=== PATIENT | female | born 1995 | race Caucasian/White ===

== ENCOUNTER 2018-08-18 17:16 | Outpatient (CLI) | payer MEDICAID ==
[2018-08-18 18:14] LABS: BASOPHIL # 0.1 10^3/ul (0.0-0.1); BASOPHILS % 0.5 % (0.0-2.0); EOSINOPHILS # 0.6 10^3/ul (0.0-0.5); EOSINOPHILS % 6.1 % (0.0-7.0); HEMATOCRIT 37.4 % (37.0-47.0); HEMOGLOBIN 11.9 g/dl (12.0-16.0); LYMPHOCYTES % 20.1 % (15.0-51.0); MEAN CORPUSCULAR HEMOGLOBIN 28.2 pg (29.0-33.0); MEAN CORPUSCULAR HGB CONC 31.8 g/dl (32.0-37.0); MEAN CORPUSCULAR VOLUME 88.6 fl (82.0-101.0); MEAN PLATELET VOLUME 10.1 fl (7.4-10.4); MONOCYTE # 0.6 10^3/ul (0.3-0.9); MONOCYTES % 5.5 % (0.0-11.0); NEUTROPHIL # 6.8 10^3/ul (1.6-7.5); NEUTROPHILS % 66.8 % (39.0-77.0); PLATELET COUNT 314 10^3/UL (140-415); RED BLOOD COUNT 4.22 10^6/ul (4.20-5.40); RED CELL DISTRIBUTION WIDTH 14.6 % (11.5-14.5)
[2018-08-18 18:14] LABS: WHITE BLOOD COUNT 10.1 10^3/ul (4.8-10.8)
[2018-08-18 18:15] LABS: ADD MAN DIFF? NO
[2018-08-18 18:17] LABS: ADD UMIC NO; UR ASCORBIC ACID NEGATIVE (NEGATIVE); UR BILIRUBIN (Dip) NEGATIVE (NEGATIVE); UR BLOOD (Dip) NEGATIVE (NEGATIVE); UR CLARITY CLEAR (CLEAR); UR COLOR YELLOW (YELLOW); UR GLUCOSE (Dip) NEGATIVE (NEGATIVE); UR KETONES (Dip) NEGATIVE (NEGATIVE); UR LEUKOCYTE ESTERASE (Dip) NEGATIVE Leu/ul (NEGATIVE); UR NITRITE (Dip) NEGATIVE (NEGATIVE); UR SPECIFIC GRAVITY (Dip) 1.006 (1.003-1.030); UR TOTAL PROTEIN (Dip) NEGATIVE (NEGATIVE); UR UROBILINOGEN (Dip) NEGATIVE (NEGATIVE)
[2018-08-18 18:34] LABS: ALANINE AMINOTRANSFERASE 20 IU/L (13-69); ALBUMIN 3.3 g/dl (3.3-4.9); ALKALINE PHOSPHATASE 204 IU/L (42-121); ANION GAP 8 (5-13); ASPARTATE AMINO TRANSFERASE 19 IU/L (15-46); BILIRUBIN,INDIRECT 0.4 mg/dl (0-1.1); BILIRUBIN,TOTAL 0.4 mg/dl (0.2-1.3); BLOOD UREA NITROGEN 6 mg/dl (7-20); CALCIUM 9.3 mg/dl (8.4-10.2); CARBON DIOXIDE 21 mmol/L (21-31); CHLORIDE 109 mmol/L (97-110); Estimated GFR > 60 mL/min (>60); GLUCOSE 140 mg/dl (70-220); POTASSIUM 4.1 mmol/L (3.5-5.1); SODIUM 138 mmol/L (135-144); TOTAL PROTEIN 6.6 g/dl (6.1-8.1); URIC ACID 3.5 mg/dl (3.1-7.9)
== END 2018-08-18 20:10 | disposition home or self-care (01) ==
LOC: OBT 17:16 → L-D 17:16 → OBT 20:10
DX: O13.3 Gestational [pregnancy-induced] hypertension without significant proteinuria, third trimester (principal); Z3A.34 34 weeks gestation of pregnancy
CPT/HCPCS: 76815; 76818; 80053; 81003; 84560; 85025

== ENCOUNTER 2018-08-20 08:36 | Outpatient (CLI) | payer MEDICAID ==
[2018-08-20 10:14] LABS: COLLECTION PERIOD 24 hrs
[2018-08-20 10:28] LABS: ADD MAN DIFF? NO
[2018-08-20 10:33] LABS: WHITE BLOOD COUNT 10.8 10^3/ul (4.8-10.8)
[2018-08-20 10:33] LABS: BASOPHIL # 0.1 10^3/ul (0.0-0.1); BASOPHILS % 0.6 % (0.0-2.0); EOSINOPHILS # 0.8 10^3/ul (0.0-0.5); EOSINOPHILS % 7.1 % (0.0-7.0); HEMATOCRIT 36.6 % (37.0-47.0); HEMOGLOBIN 11.8 g/dl (12.0-16.0); LYMPHOCYTES # 1.9 10^3/ul (0.8-2.9); LYMPHOCYTES % 17.4 % (15.0-51.0); MEAN CORPUSCULAR HEMOGLOBIN 28.2 pg (29.0-33.0); MEAN CORPUSCULAR HGB CONC 32.2 g/dl (32.0-37.0); MEAN CORPUSCULAR VOLUME 87.4 fl (82.0-101.0); MEAN PLATELET VOLUME 10.3 fl (7.4-10.4); MONOCYTE # 0.7 10^3/ul (0.3-0.9); MONOCYTES % 6.5 % (0.0-11.0); NEUTROPHIL # 7.3 10^3/ul (1.6-7.5); NEUTROPHILS % 67.3 % (39.0-77.0); PLATELET COUNT 283 10^3/UL (140-415); RED BLOOD COUNT 4.19 10^6/ul (4.20-5.40); RED CELL DISTRIBUTION WIDTH 14.6 % (11.5-14.5)
[2018-08-20 10:50] LABS: ALANINE AMINOTRANSFERASE 18 IU/L (13-69); ALBUMIN 3.4 g/dl (3.3-4.9); ALBUMIN/GLOBULIN RATIO 1.09; ALKALINE PHOSPHATASE 189 IU/L (42-121); ANION GAP 10 (5-13); ASPARTATE AMINO TRANSFERASE 19 IU/L (15-46); BILIRUBIN,INDIRECT 0.5 mg/dl (0-1.1); BILIRUBIN,TOTAL 0.5 mg/dl (0.2-1.3); BLOOD UREA NITROGEN 7 mg/dl (7-20); CALCIUM 9.9 mg/dl (8.4-10.2); CARBON DIOXIDE 21 mmol/L (21-31); CHLORIDE 109 mmol/L (97-110); CREATININE 0.45 mg/dl (0.44-1.00); Estimated GFR > 60 mL/min (>60); GLUCOSE 83 mg/dl (70-220); POTASSIUM 4.1 mmol/L (3.5-5.1); SODIUM 140 mmol/L (135-144); TOTAL PROTEIN 6.5 g/dl (6.1-8.1); URIC ACID 3.6 mg/dl (3.1-7.9)
[2018-08-20 10:53] LABS: COLLECTION PERIOD 24 hrs; CREATININE CLEARANCE 152.6 mls/min (84.0-162.0); CREATININE,URINE RANDOM 28.26 mg/dl (20-320); SCRET 0.45 mg/dl (0.44-1.00); VOLUME 3500 ml/24hrs
[2018-08-20 10:54] LABS: VOLUME 3500 mls
[2018-08-20 10:55] LABS: INR 0.89; PROTIME 12.1 Sec (11.9-14.9); PT RATIO 0.9
[2018-08-20 10:56] LABS: PARTIAL THROMBOPLASTIN TIME 26.3 Sec (23.0-35.0)
[2018-08-20 11:07] LABS: ADD UMIC YES; UR ASCORBIC ACID NEGATIVE (NEGATIVE); UR BACTERIA FEW /HPF (NONE SEEN); UR BILIRUBIN (Dip) NEGATIVE (NEGATIVE); UR BLOOD (Dip) NEGATIVE (NEGATIVE); UR CLARITY CLEAR (CLEAR); UR COLOR YELLOW (YELLOW); UR GLUCOSE (Dip) NEGATIVE (NEGATIVE); UR KETONES (Dip) NEGATIVE (NEGATIVE); UR LEUKOCYTE ESTERASE (Dip) TRACE Leu/ul (NEGATIVE); UR NITRITE (Dip) NEGATIVE (NEGATIVE); UR RBC 0 /HPF (0-5); UR SPECIFIC GRAVITY (Dip) 1.009 (1.003-1.030); UR SQUAMOUS EPITHELIAL CELL FEW /HPF (FEW); UR TOTAL PROTEIN (Dip) NEGATIVE (NEGATIVE); UR UROBILINOGEN (Dip) NEGATIVE (NEGATIVE); UR WBC 0 /HPF (0-5)
== END 2018-08-20 12:00 | disposition home or self-care (01) ==
LOC: OBT 08:36 → L-D 08:36 → OBT 12:00
DX: O13.3 Gestational [pregnancy-induced] hypertension without significant proteinuria, third trimester (principal); Z3A.34 34 weeks gestation of pregnancy
CPT/HCPCS: 76818; 80053; 81001; 82575; 84156; 84560; 85025; 85384; 85610; 85730

== ENCOUNTER 2018-09-11 03:32 | Inpatient (IN) | payer MEDICAID ==
[2018-09-11] MEDS ORDERED: MISOPROSTOL 200 MCG TAB PR (04:30)
[2018-09-11] MEDS ORDERED: MINERAL OIL LIGHT 10 ML VIAL TOP (04:30)
[2018-09-11] MEDS ORDERED: METHYLERGONOVINE 0.2 MG INJ IM (04:30)
[2018-09-11] MEDS ORDERED: BUTORPHANOL 2 MG INJ IV (04:30)
[2018-09-11] MEDS ORDERED: CARBOPROST 250 MCG INJ IM (04:30)
[2018-09-11] MEDS ORDERED: LIDOCAINE 1% (MPF) 30 ML INJ INJ (04:30)
[2018-09-11] MEDS ORDERED: IBUPROFEN 600 MG TAB PO (04:30)
[2018-09-11] MEDS ORDERED: OXYTOCIN 30 UNITS/LR 500 ML IV ×3 (04:30)
[2018-09-11 04:54] LABS: ADD MAN DIFF? NO
[2018-09-11 04:59] LABS: BASOPHILS % 0.4 % (0.0-2.0); EOSINOPHILS # 0.2 10^3/ul (0.0-0.5); EOSINOPHILS % 2.2 % (0.0-7.0); HEMATOCRIT 41.2 % (37.0-47.0); LYMPHOCYTES # 2.4 10^3/ul (0.8-2.9); LYMPHOCYTES % 24.9 % (15.0-51.0); MEAN CORPUSCULAR HEMOGLOBIN 28.6 pg (29.0-33.0); MEAN CORPUSCULAR HGB CONC 31.6 g/dl (32.0-37.0); MEAN CORPUSCULAR VOLUME 90.7 fl (82.0-101.0); MONOCYTE # 0.7 10^3/ul (0.3-0.9); NEUTROPHIL # 6.2 10^3/ul (1.6-7.5); NEUTROPHILS % 64.7 % (39.0-77.0); PLATELET COUNT 254 10^3/UL (140-415); RED BLOOD COUNT 4.54 10^6/ul (4.20-5.40); RED CELL DISTRIBUTION WIDTH 14.6 % (11.5-14.5)
[2018-09-11 04:59] LABS: WHITE BLOOD COUNT 9.7 10^3/ul (4.8-10.8)
[2018-09-11] MEDS: LACTATED RINGER'S 1,000 ML IV ×3 (05:10→16:21)
[2018-09-11] MEDS: AMPICILLIN 2 GM/NS (PMX) 100 ML IV (05:10)
[2018-09-11] MEDS: OXYTOCIN 30 UNITS/LR 500 ML IV (05:15)
[2018-09-11 05:18] LABS: INR 0.87; PARTIAL THROMBOPLASTIN TIME 27.2 Sec (23.0-35.0); PROTIME 11.9 Sec (11.9-14.9); PT RATIO 0.9
[2018-09-11 05:28] LABS: ALANINE AMINOTRANSFERASE 49 IU/L (13-69); ALBUMIN 3.6 g/dl (3.3-4.9); ALKALINE PHOSPHATASE 272 IU/L (42-121); ASPARTATE AMINO TRANSFERASE 38 IU/L (15-46); BILIRUBIN,INDIRECT 0.5 mg/dl (0-1.1); BILIRUBIN,TOTAL 0.5 mg/dl (0.2-1.3); URIC ACID 5.1 mg/dl (3.1-7.9)
[2018-09-11] MEDS ORDERED: AMPICILLIN 1 GM/NS (PMX) 50 ML IV (09:00)
[2018-09-11] MEDS ORDERED: FENTAnyl 2MCG/ML-ROPIV 0.2% 100 ML (11:10)
[2018-09-11] MEDS ORDERED: NALOXONE (0.4 MG/ML) INJ IV (11:30)
[2018-09-11 15:09] LABS: RAPID PLASMA REAGIN NONREACTIVE (NR)
[2018-09-11] MEDS: FENTAnyl 2MCG/ML-ROPIV 0.2% 100 ML BAG EPI (19:26)
[2018-09-11] MEDS: AMPICILLIN 1 GM/NS (PMX) 50 ML IV (21:26)
[2018-09-12] MEDS: FENTAnyl 2MCG/ML-ROPIV 0.2% 100 ML BAG EPI ×3 (01:47→14:11)
[2018-09-12] MEDS: AMPICILLIN 1 GM/NS (PMX) 50 ML IV ×5 (01:48→19:47)
[2018-09-12] MEDS: LACTATED RINGER'S 1,000 ML IV ×5 (01:50→20:09)
[2018-09-12] MEDS ORDERED: CARBOPROST 250 MCG INJ IM ×2 (14:00→18:00)
[2018-09-12] MEDS: CEFAZOLIN 3 GM in DEXTROSE 5% 100 ML IV (14:00)
[2018-09-12] MEDS ORDERED: METHYLERGONOVINE 0.2 MG INJ IM ×2 (14:00→18:00)
[2018-09-12] MEDS ORDERED: MISOPROSTOL 200 MCG TAB PR ×2 (14:00→18:00)
[2018-09-12] MEDS ORDERED: OXYTOCIN 30 UNITS/LR 500 ML IV ×3 (14:00→18:00)
[2018-09-12] MEDS: CITRIC ACID/NA CITRATE 30 ML CUP PO (15:30)
[2018-09-12] MEDS: METOCLOPRAMIDE 10 MG INJ IV (15:30)
[2018-09-12] MEDS: FAMOTIDINE 20 MG INJ IV (15:30)
[2018-09-12 15:41] LABS: ADD MAN DIFF? NO
[2018-09-12 15:42] LABS: BASOPHILS % 0.2 % (0.0-2.0); EOSINOPHILS # 0.1 10^3/ul (0.0-0.5); EOSINOPHILS % 0.3 % (0.0-7.0); HEMOGLOBIN 11.9 g/dl (12.0-16.0); LYMPHOCYTES # 1.2 10^3/ul (0.8-2.9); LYMPHOCYTES % 7.4 % (15.0-51.0); MEAN CORPUSCULAR HEMOGLOBIN 28.5 pg (29.0-33.0); MEAN CORPUSCULAR HGB CONC 31.3 g/dl (32.0-37.0); MEAN CORPUSCULAR VOLUME 91.1 fl (82.0-101.0); MEAN PLATELET VOLUME 11.2 fl (7.4-10.4); MONOCYTE # 1.1 10^3/ul (0.3-0.9); MONOCYTES % 6.8 % (0.0-11.0); NEUTROPHIL # 13.6 10^3/ul (1.6-7.5); NEUTROPHILS % 84.7 % (39.0-77.0); PLATELET COUNT 213 10^3/UL (140-415); RED BLOOD COUNT 4.17 10^6/ul (4.20-5.40); RED CELL DISTRIBUTION WIDTH 14.7 % (11.5-14.5)
[2018-09-12 15:42] LABS: WHITE BLOOD COUNT 16.1 10^3/ul (4.8-10.8)
[2018-09-12 16:01] LABS: ALANINE AMINOTRANSFERASE 58 IU/L (13-69); ALBUMIN 3.1 g/dl (3.3-4.9); ALBUMIN/GLOBULIN RATIO 1.19; ALKALINE PHOSPHATASE 260 IU/L (42-121); ANION GAP 10 (5-13); ASPARTATE AMINO TRANSFERASE 43 IU/L (15-46); BILIRUBIN,INDIRECT 0.8 mg/dl (0-1.1); BILIRUBIN,TOTAL 0.8 mg/dl (0.2-1.3); BLOOD UREA NITROGEN 15 mg/dl (7-20); CALCIUM 9.1 mg/dl (8.4-10.2); CARBON DIOXIDE 18 mmol/L (21-31); CHLORIDE 108 mmol/L (97-110); Estimated GFR > 60 mL/min (>60); GLUCOSE 64 mg/dl (70-220); POTASSIUM 3.6 mmol/L (3.5-5.1); SODIUM 136 mmol/L (135-144); TOTAL PROTEIN 5.7 g/dl (6.1-8.1)
[2018-09-12] MEDS ORDERED: morphine SULFATE/PF (10 MG/10 ML) INJ (16:24)
[2018-09-12] MEDS ORDERED: PHENYLephrine (100 MCG/ML) 10ML SYG ×2 (16:30→17:39)
[2018-09-12 16:32] LABS: CREATININE,URINE RANDOM 104.06 mg/dl (20-320); PROTEIN/CREAT RATIO 0.41 RATIO
[2018-09-12] MEDS ORDERED: ONDANSETRON 4 MG INJ (16:55)
[2018-09-12] MEDS ORDERED: MEPERIDINE 25 MG INJ IV (17:00)
[2018-09-12] MEDS ORDERED: FENTAnyl 50 MCG/ML VIAL IV ×3 (17:00)
[2018-09-12] MEDS ORDERED: ONDANSETRON 4 MG INJ IV ×2 (17:00→18:30)
[2018-09-12] MEDS ORDERED: DIPHENHYDRAMINE 50 MG INJ IV ×2 (17:00→18:30)
[2018-09-12] MEDS ORDERED: HYDROmorphONE 1 MG/5 ML IV SYRINGE IV ×3 (17:00)
[2018-09-12] MEDS ORDERED: PROCHLORPERAZINE 10 MG INJ IV (17:00)
[2018-09-12 17:31] LABS: CBV Base Excess -5.6 mmol/L; CBV Oxygen Sat 48.7 mmHG; CBV Total Hemglobin 13.6 g/dl; Cord Blood Venous pO2 27.4 mmHG (15.0-45.0); Fraction OxyHgb Cord Venous 47.5 %; MODE ROOM AIR; MetHgb Cord Venous 1.5 %; Sample Type CBV; Site CORD
[2018-09-12 17:34] LABS: AADO2 Cord Arterial 80.2 mmHg; Arterial Cord Blood pCO2 34.5 mmHG (25-50); CBA COHb 1.6 %; CBA Oxygen Sat 59.2 mmHG; CBA Total Hemglobin 14.8 g/dl; Cord Blood Arterial pO2 28.2 mmHG (15.0-45.0); Fraction OxyHgb Cord Arterial 57.6 %; MODE ROOM AIR; MetHgb Cord Arterial 1.1 %; Sample Type CBA; Site CORD
[2018-09-12] MEDS ORDERED: NACL 0.9% 3 ML SYG IV (18:00)
[2018-09-12] MEDS ORDERED: NA PHOSPHATE/BIPHOS 133 ML ENEMA PR (18:00)
[2018-09-12] MEDS ORDERED: LANOLIN HPA 1 PKT TOP (18:00)
[2018-09-12] MEDS ORDERED: HYDROmorphONE 0.5 MG/0.5 ML SYG IV ×2 (18:30)
[2018-09-12] MEDS ORDERED: NALOXONE (0.4 MG/ML) INJ IV (18:30)
[2018-09-12] MEDS ORDERED: ZOLPIDEM 5 MG TAB PO (18:30)
[2018-09-12] MEDS: OXYTOCIN 30 UNITS/LR 500 ML IV ×2 (18:33→23:32)
[2018-09-12] MEDS: AZITHROMYCIN 500MG/NS (PMX) 250 ML IV (18:37)
[2018-09-12] MEDS: KETOROLAC 30 MG INJ IV (19:08)
[2018-09-12] MEDS: IBUPROFEN 600 MG TAB PO (19:44)
[2018-09-13] MEDS: LACTATED RINGER'S 1,000 ML IV ×2 (04:09→09:18)
[2018-09-13] MEDS: IBUPROFEN 600 MG TAB PO ×5 (06:00→23:48)
[2018-09-13 07:15] LABS: ADD MAN DIFF? NO
[2018-09-13 07:21] LABS: WHITE BLOOD COUNT 15.2 10^3/ul (4.8-10.8)
[2018-09-13 07:21] LABS: BASOPHIL # 0.1 10^3/ul (0.0-0.1); BASOPHILS % 0.4 % (0.0-2.0); EOSINOPHILS # 0.2 10^3/ul (0.0-0.5); EOSINOPHILS % 1.1 % (0.0-7.0); LYMPHOCYTES % 13.1 % (15.0-51.0); MEAN CORPUSCULAR HEMOGLOBIN 28.7 pg (29.0-33.0); MEAN CORPUSCULAR HGB CONC 31.4 g/dl (32.0-37.0); MEAN CORPUSCULAR VOLUME 91.4 fl (82.0-101.0); MEAN PLATELET VOLUME 10.8 fl (7.4-10.4); MONOCYTE # 1.4 10^3/ul (0.3-0.9); MONOCYTES % 9.1 % (0.0-11.0); NEUTROPHIL # 11.5 10^3/ul (1.6-7.5); NEUTROPHILS % 75.6 % (39.0-77.0); PLATELET COUNT 207 10^3/UL (140-415); RED BLOOD COUNT 3.83 10^6/ul (4.20-5.40); RED CELL DISTRIBUTION WIDTH 14.7 % (11.5-14.5)
[2018-09-13] MEDS: KETOROLAC 30 MG INJ IV ×2 (07:38→14:37)
[2018-09-13] MEDS: OXYCODONE/ACETAMINOPHEN (5/325) TAB PO (21:27)
[2018-09-14] MEDS: OXYCODONE/ACETAMINOPHEN (5/325) TAB PO ×4 (02:02→20:25)
[2018-09-14] MEDS: IBUPROFEN 600 MG TAB PO ×4 (05:41→23:39)
[2018-09-15] MEDS: OXYCODONE/ACETAMINOPHEN (5/325) TAB PO ×3 (02:42→17:41)
[2018-09-15] MEDS: IBUPROFEN 600 MG TAB PO ×3 (05:25→17:17)
[2018-09-15] MEDS: MEASLES,MUMPS,RUBELLA VACCINE INJ SC* (09:00)
[2018-09-15] MEDS: DIPHTH/TET/ACEL PERTUSS (ADULT) 0.5 ML VIAL IM* (09:00)
== END 2018-09-15 18:22 | disposition home or self-care (01) | DRG 788 ==
LOC: OBT 03:32 → L-D 03:34 → OBT 04:00 → PP1 09-12 20:20 → L-D 04:14
PROC: 10D00Z1 Extraction of Products of Conception, Low, Open Approach (ICD-10-PCS; principal; 2018-09-12)
DX: O16.4 Unspecified maternal hypertension, complicating childbirth (principal); O62.1 Secondary uterine inertia; O32.4XX0 Maternal care for high head at term, not applicable or unspecified; O66.5 Attempted application of vacuum extractor and forceps; Z3A.38 38 weeks gestation of pregnancy; Z37.0 Single live birth
CPT/HCPCS: 36415; 36600; 62322; 76815; 80053; 80076; 81003; 82570; 82803; 84560; 85025; 85610; 85730; 86592; 86850; 86900; 86901; 88307; 99464